=== PATIENT | female | born 1955 | race American Indian/Alaskan Native ===

== ENCOUNTER 2017-09-24 10:21 | Day surgery (SDC) | payer BC, MEDICARE ==
[~2017-09-24 10:21] MED LIST: ANCEF/STERILE WATER 2 GM/20 ML IV NR; DILAUDID IV PRN; LACTATED RINGERS 1,000 ML IV SCH; VERSED IV NR; ZOFRAN IV PRN
[2017-09-24] MEDS ORDERED: XYLOCAINE 1% 20 mL ONE (11:01)
[2017-09-24] MEDS ORDERED: MARCAINE 0.25% INFILTRATI ONE ×2 (11:02→13:00)
[2017-09-24] MEDS ORDERED: BACTROBAN 2% ONE (11:02)
--- NOTE | 2017-09-24 11:50 | Anesthesia Day of Surgery ---
Anesthesia Day of Surgery - Day of Surgery Patient Examined: Yes Patient H&P Reviewed: Yes Patient is NPO: Yes
--- NOTE | 2017-09-24 11:51 | Anesthesia Consultation ---
Anesthesia Consult and Med Hx Date of service: 09/24/17 - Airway Anesthetic Teeth Evaluation: Good ROM Head & Neck: Adequate Mental/Hyoid Distance: Adequate Mallampati Class: Class I Intubation Access Assessment: Good - Pulmonary Exam CTA: Yes - Cardiac Exam Cardiac Exam: RRR - Pre-Operative Health Status ASA Pre-Surgery Classification: ASA3 Proposed Anesthetic Plan: General (GA with LMA, HX of CVA, Hx of seizures controlled with phenobarb, HTN took med today) - Pulmonary Hx Smoking: Yes (STOPPED X 10 YRS , 1 PPD X 20 YRS) Hx Pneumonia: Yes (04/2017) Hx Sleep Apnea: No (DIO PRE SCREEN HIGH RISK) - Cardiovascular System Hx Hypertension: Yes (1987) - Central Nervous System Hx Seizures: Yes (SMALL SEIZURE 4 WEEKS AGO,ON DAILY MEDS) CVA: Yes (-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
[2017-09-24] MEDS ORDERED: XYLOCAINE MPF 2% ONE (12:40)
[2017-09-24] MEDS ORDERED: DIPRIVAN 10 MG/ML IV ONE (12:40)
[2017-09-24] MEDS ORDERED: DILAUDID ONE (12:42)
[2017-09-24] MEDS ORDERED: VERSED IV ONE (12:54)
[2017-09-24] MEDS ORDERED: XYLOCAINE 1% 20 mL INFILTRATI ONE (13:00)
[2017-09-24] MEDS ORDERED: DECADRON ONE (13:20)
[2017-09-24] MEDS ORDERED: DECADRON IM ONE (13:24)
[2017-09-24] MEDS ORDERED: BACTROBAN 2% TP ONE (13:25)
--- NOTE | 2017-09-24 15:50 | Post Anesthesia Evaluation ---
- Post Anesthesia Evaluation Patient Participated: Yes Airway Patent: Yes Stable Respiratory Function: Yes Nausea/Vomiting: No Temp > 96.8F: Yes Pain Manageable: Yes Adequeate Hydration: Yes Anesthesia Complications: No
[2017-09-24 18:13] VITALS: BP 140/74
--- NOTE | 2017-10-04 20:34 | Operative Report ---
PREOPERATIVE DIAGNOSIS: Painful plantar fasciitis, right foot. POSTOPERATIVE DIAGNOSIS: Painful plantar fasciitis, right foot. SURGICAL PROCEDURE: Endoscopic plantar fasciotomy, right foot. ANESTHESIA: Local with monitored anesthesia care. TOURNIQUET: Pneumatic ankle tourniquet, right ankle. ESTIMATED BLOOD LOSS: Less than 5 mL. PROCEDURE IN DETAIL: The patient was brought into the operating room, placed on the operating table in a supine position. Following intravenous sedation, the patient was given 2 grams of Ancef prophylactically. At this time, a well-padded pneumatic ankle tourniquet was placed 2-3 cm proximal to both the medial and lateral malleoli. At this time, an Esmarch was applied and 12 mL of 1:1 mixture of 1% lidocaine plain plus 0.25% Marcaine plain was infiltrated into the affected site after cleansing with alcohol and Betadine ointment at the plantar heel. At this time, the foot was then scrubbed, prepped and draped in the usual aseptic manner. An Esmarch was used to exsanguinate the affected foot to 250 mmHg and at this time, following standard techniques, an endoscopic plantar fasciotomy was performed with complete release of the fascia as noted. At this time, a few photos were taken and the area was flushed with normal saline and 1 mL of dexamethasone phosphate was infiltrated into the affected area. Superficial closure was performed with 4-0 Prolene and dressed with bacitracin ointment, Adaptic sterile compressive dressing. Pneumatic ankle tourniquet was deflated and a prompt hyperemic response was noted to all digits to the affected foot. The patient tolerated the procedure and anesthesia well and will be discharged home following postop instructions. The patient will be released status post postop monitoring. JOB# [id number] FARHAT/ELISEO
== END 2017-09-24 14:45 | disposition home or self-care (01) ==
LOC: OR 10:21
PROVIDERS: ATTEND Podiatrist Foot & Ankle Surgery
DX: M72.2 Plantar fascial fibromatosis (principal); Z87.891 Personal history of nicotine dependence
CPT/HCPCS: 29893; J0690; J1100; J1170; J2250; J2704; J7120